=== PATIENT | male | born 1960 | race Caucasian/White ===

== ENCOUNTER 2024-04-06 08:56 | Emergency (ER) | payer OTHER, BC, MEDICARE, SELFPAY ==
[2024-04-06 09:10] VITALS: BP 151/83
--- NOTE | 2024-04-06 09:47 | ED.GENMED ---
History of Present Illness
General
Chief Complaint: Skin Surface Trauma
Time Seen by Provider: 04/06/24 09:47
History of Present Illness
History of Present Illness:
HPI: While working, the patient was moving a box spring and fell striking his right londono against a dumpster. He is not sure if his tetanus status. He came in here for evaluation due to laceration. He denies any other injury.
EXAM:
GENERAL: Well appearing in no distress
HEENT: Moist oral mucosa
NEUROLOGIC: Excellent strength all extremities, no coordination deficits
PSYCHIATRIC: Appropriate mental status, normal insight and judgement
EXTREMITIES: There is no bony tenderness. There is a rectangular shaped flap of skin measuring approximately 8 cm at the midpoint of the right londono, function of the ankle is excellent
SKIN: As above
TIME OF INITIAL ENCOUNTER: 10 AM
NUMBER AND COMPLEXITY OF PROBLEMS ADDRESSED AT THE ENCOUNTER
� Chronic conditions affecting care: Former smoker, is not a diabetic
� Acute Exacerbation and/or Progression of Chronic Illness: This is an acute problem
� Differential Diagnosis includes: Laceration, protection for infection, foreign body
AMOUNT AND/OR COMPLEXITY OF DATA TO BE REVIEWED AND ANALYZED
� I performed an independent evaluation of and my interpretation is:
EKG:
CT:
X-rays:
Laboratory Studies:
Other:
� Review of other/old records: I reviewed records, the patient had a visit here for esophageal obstruction in November 2022
� Clinical information was obtained by an independent historian: None needed
� Prescriptions/Medications Considered but not given:
� Further testing considered but not performed:
RISK OF COMPLICATIONS AND/OR MORBIDITY OR MORTALITY OF PATIENT MANAGEMENT
� Social determinants of health affecting care: Lives at home, is a work-related injury
� Discussion with other providers:
� Escalation of care including admission/observation vs risk of discharge considered: The wound was cleaned with saline and ChloraPrep and irrigated. Lack repaired without difficulty.
Past History
Past History
ED Past Medical History: None
ED Past Surgical History: Orthopedic
Social History
Tobacco: Former smoker
Phy Exam
Physical Exam
Physical Exam:
See HPI
Course
Orders/Labs/Results
Orders:
Orders
04/06/24 10:15
Tetanus/Diphth/Acelpertussis [Adacel] 0.5 ml IM .ONCE ONE
Vital Signs
Initial and Last Documented VS:
Initial Vital Signs
Temp Pulse Resp BP Pulse Ox
98 F 76 16 151/83 98
04/06/24 09:10 04/06/24 09:10 04/06/24 09:10 04/06/24 09:10 04/06/24 09:10
Last Documented Vital Signs
Temp Pulse Resp BP Pulse Ox
98 F 76 16 151/83 98
04/06/24 09:10 04/06/24 09:10 04/06/24 09:10 04/06/24 09:10 04/06/24 09:10
Procedures
Laceration Closure
Right Anterior Leg:
Status of Wound: dirty
Description of Wound Edges: ragged and flap-poorly vascularized
Preparation: cleaned with saline and other (Chlorhexidine)
Anesthesia: 1% Lidocaine with epi
Revision/Debridement: routine- no revision
Wound exploration: explored to base- no FB
Type of Closure: single layer closure
Skin Closure Material: 4-0 prolene
Number of sutures: 8
*Critical Care Note
Total Time (30-74mins, 75-104mins- exclusive of procedures): Not Applicable
ED Attending Note
-
Portions of this chart may have been created with voice recognition software.� Occasional wrong word or��sound alike� substitutions may have occurred due to the inherent limitations of voice recognition software.
Discharge Plan
Departure
Patient Disposition: Home (Routine Discharge)
Date of Disposition: 04/06/24
Time of Disposition: 10:15
Patient with high blood pressure during this ER visit?: Yes
Discharge Problem:
Laceration of leg, right
Instructions: Laceration Repair With Stitches (DC), BLOOD PRESSURE
Prescriptions:
New
clindamycin HCl 150 mg capsule
150 mg PO TID Qty: 6 0RF
No Action
levetiracetam 750 mg Tablet
750 mg PO BID
omeprazole 20 mg Tablet,Delayed Release (Dr/Ec)
20 mg PO BID
Activity Restrictions/Additional Instructions:
I sent a prescription for clindamycin to your pharmacy to help prevent an infection. We updated your tetanus status. Return here if worse. Have stitches removed by your doctor in approximately 10 days.
Discharge Date and Time
Print Language: CHINESE
[2024-04-06] MEDS: ADACEL 0.5 ML IM (10:23)
== END 2024-04-06 10:49 | disposition home or self-care (01) ==
LOC: EMR 08:56
PROVIDERS: EMERGENCY PHYSICIAN Emergency Medicine
DX: S81.811A Laceration without foreign body, right lower leg, initial encounter (principal); Y99.0 Civilian activity done for income or pay; Z23 Encounter for immunization; Z87.891 Personal history of nicotine dependence
CPT/HCPCS: 99282; 12001; 90471; 90715

== ENCOUNTER 2024-04-14 07:09 | Emergency (ER) | payer SELFPAY ==
[2024-04-14 07:12] VITALS: BP 176/84
--- NOTE | 2024-04-14 07:54 | ED.GENMED ---
History of Present Illness
General
Chief Complaint: Wound Check/Suture Removal
Source: patient
Exam Limitations: none
Time Seen by Provider: 04/14/24 07:29
Nursing documentation reviewed up to this point in time: agreed with
History of Present Illness
History of Present Illness:
62 male presenting for suture removal over the right londono. Had sutures placed 10 days ago. Claims that he feels the area is seemingly healing well no increasing redness swelling or warmth. No fevers.
Past History
Past History
ED Past Medical History: None
ED Past Surgical History: Orthopedic
Social History
Tobacco: Former smoker
Review of Systems
Review of Systems
Allergies reviewed?: Yes
All Other Systems: ROS reviewed and negative except as documented in HPI and ROS
Phy Exam
Physical Exam
Physical Exam:
GENERAL: Alert , in no apparent distress
EYE: pupils equal and reactive
NECK: Supple, no significant adenopathy.
ENT: o/p clr, mmm.
CARDIAC: Regular rate and rhythm .
LUNGS: Clear breath sounds bilaterally, no acute respiratory distress, no wheezes/rales/rhonchi
ABDOMEN: Soft, without focal tenderness, no r/g, no cvat
NEUROLOGICAL: Alert and oriented, no focal neuro deficits
SKIN: Well-healing laceration to the right londono no purulent drainage no discharge no swelling warm and dry, skin intact.
MUSCULOSKELETAL: No edema, well perfused.
PSYCH: Normal and appropriate interaction.
Course
Vital Signs
Initial and Last Documented VS:
Initial Vital Signs
Temp Pulse Resp BP Pulse Ox
98.1 F 84 16 176/84 98
04/14/24 07:12 04/14/24 07:12 04/14/24 07:12 04/14/24 07:12 04/14/24 07:12
Last Documented Vital Signs
Temp Pulse Resp BP Pulse Ox
98.1 F 84 16 176/84 98
04/14/24 07:12 04/14/24 07:12 04/14/24 07:12 04/14/24 07:12 04/14/24 07:12
Procedures
Other
Indication for procedure:: Suture removal right londono
Procedure completed by: Myself
Consent form signed: No
If no, reason: Emergency procedure
Additional Procedure:
8 sutures removed from right londono. Area was cleaned and 3 Steri-Strips were placed for further security of the wound. Otherwise was bandaged.
*Critical Care Note
Total Time (30-74mins, 75-104mins- exclusive of procedures): Not Applicable
ED Attending Note
-
Portions of this chart may have been created with voice recognition software.� Occasional wrong word or��sound alike� substitutions may have occurred due to the inherent limitations of voice recognition software.
Discharge Plan
Departure
Patient Disposition: Home (Routine Discharge)
Date of Disposition: 04/14/24
Time of Disposition: 08:00
Patient with high blood pressure during this ER visit?: No
Condition: Good
Covid-19: Not Applicable
Discharge Problem:
Encounter for removal of sutures
Instructions: Stitches Removal, Wound Care (DC)
Prescriptions:
No Action
levetiracetam 750 mg Tablet
750 mg PO BID
omeprazole 20 mg Tablet,Delayed Release (Dr/Ec)
20 mg PO BID
clindamycin HCl 150 mg capsule
150 mg PO TID Qty: 6 0RF
Activity Restrictions/Additional Instructions:
You came to the emergency department today for suture removal. These were removed and Steri-Strips were placed. Please keep the area clean covered and return for any worsening, new or concerning symptoms.
Interventions
Interventions:
*Risk Screen - Suicide Last Done: 04/14/24 07:12
*General Assessment Last Done: 04/14/24 07:12
*Neglect/Abuse Screening Last Done: 04/14/24 07:12
ED-Skin Assessment Last Done: 04/14/24 07:25
Discharge Date and Time
Print Language: KOREAN
[2024-04-14 08:06] VITALS: BP 168/79
== END 2024-04-14 08:07 | disposition home or self-care (01) ==
LOC: EMR 07:09
PROVIDERS: EMERGENCY PHYSICIAN Emergency Medicine
DX: Z48.02 Encounter for removal of sutures (principal); Z87.891 Personal history of nicotine dependence
CPT/HCPCS: 99281

== ENCOUNTER 2025-08-16 06:20 | Day surgery (SDC) | payer MEDICARE, OTHER, SELFPAY ==
[2025-08-16 08:09] VITALS: BMI 29.3
[2025-08-16 08:10] VITALS: BMI 29.3
[2025-08-16 08:11] VITALS: BP 147/76
[2025-08-16 09:36] VITALS: BP 130/59
[2025-08-16 09:45] VITALS: BP 118/64
[2025-08-16 09:50] VITALS: BP 128/70
== END 2025-08-16 10:05 | disposition home or self-care (01) ==
LOC: SDS 06:20
PROVIDERS: ATTENDING PHYSICIAN Internal Medicine Gastroenterology
DX: K22.70 Barrett's esophagus without dysplasia (principal); K22.2 Esophageal obstruction; K22.89 Other specified disease of esophagus
CPT/HCPCS: 43239; 88305; 88341; 88342